=== PATIENT | female | born 1935 | race Caucasian/White ===

== ENCOUNTER 2021-08-31 06:41 | Emergency (ER) | payer MEDICARE, BC ==
[~2021-08-31] VITALS: Ht 165.1 cm; Wt 102.3 kg
[~2021-08-31 06:41] MED LIST: ALLOPURINOL300 M1 PO; DICLOFENAC SOD100 GM TP; FUROSEMIDE40 MG PO; LEVOTHYROXINE0.05 MG PO
[2021-08-31] MEDS ORDERED: ZYLOPRIM100 MG PO (06:49)
[2021-08-31 07:48] LABS: BASO # 0.01 K/mm3 (0.02-0.10); EOS # 0.26 K/mm3 (0.04-0.40); EOS % 3.1 % (1.0-5.0); HEMATOCRIT 37.7 % (37.0-47.0); HEMOGLOBIN 12.3 g/dL (12.5-16.0); LYMPH# 2.79 K/mm3 (1.50-4.00); MEAN CELL VOLUME 89 fl (78-100); MEAN CORPUSCULAR HEMOGLOBIN 29 pg (27-31); MEAN CORPUSCULAR HGB CONC 33 g/dL (33-37); MEAN PLATELET VOLUME 10.2 fl (7.4-10.4); MONO # 0.91 K/mm3 (0.20-0.80); NEU # 4.28 K/mm3 (1.40-6.50); PLATELET COUNT 174 K/mm3 (130-400); RED BLOOD COUNT 4.22 M/mm3 (4.10-5.30); RED CELL DISTRIBUTION WIDTH 14.3 % (11.5-14.5); WHITE BLOOD COUNT 8.3 K/mm3 (4.8-10.8)
[2021-08-31 08:02] LABS: ALBUMIN 3.3 g/dL (3.4-4.8); POTASSIUM 4.7 mmol/L (3.5-5.1)
[2021-08-31 08:03] LABS: SODIUM 139 mmol/L (136-145)
[2021-08-31 08:04] LABS: CALCIUM 8.9 mg/dL (8.3-10.5)
[2021-08-31 08:05] LABS: GLUCOSE 142 mg/dL (65-105); TOTAL PROTEIN 6.2 g/dL (6.2-8.1)
[2021-08-31 08:06] LABS: CARBON DIOXIDE 23 mmol/L (23-31)
[2021-08-31 08:07] LABS: TOTAL BILIRUBIN 0.4 mg/dL (0.2-1.2)
[2021-08-31 08:10] LABS: AST-SGOT 14 U/L (5-34)
[2021-08-31 08:11] LABS: ALT/SGPT 7 U/L (0-55)
[2021-08-31 08:26] LABS: TROPONIN-I < 0.030 ng/mL (<0.030)
[2021-08-31 11:18] VITALS: BP 119/92
== END 2021-08-31 11:14 | disposition home or self-care (01) ==
LOC: ED 06:41
PROVIDERS: Family Medicine
DX: I50.9 Heart failure, unspecified (principal); N18.9 Chronic kidney disease, unspecified
CPT/HCPCS: J1940

== ENCOUNTER → 2021-09-01 | Outpatient (CLI) | payer MEDICARE, BC ==
[~2021-09-01] MED LIST changes: +ZYLOPRIM100 MG PO
== END ==
LOC: VAS 09:52 → RAD 10:00
DX: I50.9 Heart failure, unspecified (principal)